=== PATIENT | female | born 1975 | race American Indian/Alaskan Native ===

== ENCOUNTER 2018-02-10 21:17 | Emergency (ER) | payer MEDICAID ==
[2018-02-10 22:32] VITALS: BP 141/78
[2018-02-10 23:11] LABS: Basophils # (Auto) 0.1 K/mm3 (0.0-0.1); Basophils % (Auto) 1.2 % (0.0-1.8); Eosinophils # (Auto) 0.2 K/mm3 (0.0-0.4); Hematocrit 42.6 % (30.3-42.9); Hemoglobin 13.7 gm/dl (10.1-14.3); Lymphocytes # (Auto) 3.4 K/mm3 (1.2-5.4); Lymphocytes % (Auto) 48.7 % (13.4-35.0); Mean Corpuscular HGB Conc 32 % (30-34); Mean Corpuscular Hemoglobin 30 pg (28-32); Mean Corpuscular Volume 92 fl (79-97); Monocytes # (Auto) 0.7 K/mm3 (0.0-0.8); Monocytes % (Auto) 10.6 % (0.0-7.3); Platelet Count 358 K/mm3 (140-440); Red Blood Count 4.61 M/mm3 (3.65-5.03); Red Cell Distribution Width 13.8 % (13.2-15.2)
[2018-02-10 23:30] LABS: Alanine Aminotransferase 18 units/L (7-56); Albumin 3.9 g/dL (3.9-5); BUN/Creatinine Ratio 12; Blood Urea Nitrogen 11 mg/dL (7-17); Hemolysis Index 7; Lipase 16 units/L (13-60)
== END 2018-02-11 00:30 | disposition left against medical advice (07) ==
LOC: ED 21:17
DX: R10.9 Unspecified abdominal pain (principal); R11.2 Nausea with vomiting, unspecified; F17.200 Nicotine dependence, unspecified, uncomplicated; Z53.21 Procedure and treatment not carried out due to patient leaving prior to being seen by health care provider
CPT/HCPCS: 36415; 80053; 83690; 85025

== ENCOUNTER 2018-04-03 06:09 | Observation (INO) | payer MEDICAID ==
[2018-04-01 14:01] LABS: Basophils # (Auto) 0.1 K/mm3 (0.0-0.1); Eosinophils # (Auto) 0.1 K/mm3 (0.0-0.4); Eosinophils % (Auto) 1.5 % (0.0-4.3); Hematocrit 43.3 % (30.3-42.9); Hemoglobin 14.4 gm/dl (10.1-14.3); Lymphocytes # (Auto) 2.9 K/mm3 (1.2-5.4); Lymphocytes % (Auto) 42.9 % (13.4-35.0); Mean Corpuscular HGB Conc 33 % (30-34); Mean Corpuscular Hemoglobin 31 pg (28-32); Mean Corpuscular Volume 93 fl (79-97); Monocytes # (Auto) 0.8 K/mm3 (0.0-0.8); Monocytes % (Auto) 12.2 % (0.0-7.3); Platelet Count 347 K/mm3 (140-440); Red Blood Count 4.66 M/mm3 (3.65-5.03); Red Cell Distribution Width 13.2 % (13.2-15.2)
--- NOTE | 2018-04-01 14:09 | Anesthesia Consultation ---
Anesthesia Consult and Med Hx Date of service: 04/01/18 - Airway Anesthetic Teeth Evaluation: Good ROM Head & Neck: Adequate Mental/Hyoid Distance: Adequate Mallampati Class: Class III Intubation Access Assessment: Possibly Difficult - Pulmonary Exam CTA: Yes - Cardiac Exam Cardiac Exam: RRR - Pre-Operative Health Status ASA Pre-Surgery Classification: ASA3 Proposed Anesthetic Plan: General
[2018-04-01 14:18] LABS: Alanine Aminotransferase 14 units/L (7-56); Albumin 3.9 g/dL (3.9-5); BUN/Creatinine Ratio 8; Blood Urea Nitrogen 8 mg/dL (7-17); Calcium 8.9 mg/dL (8.4-10.2); Hemolysis Index 10
[~2018-04-03 06:09] MED LIST: DILAUDID IV PRN; LACTATED RINGERS 1,000 ML IV SCH; VERSED IV NR; ZOFRAN IV PRN
[2018-04-03] MEDS ORDERED: PEPCID IV ONE (06:28)
[2018-04-03] MEDS ORDERED: NACL BACTERIOSTATIC INFILTRATI ONE (06:31)
[2018-04-03] MEDS ORDERED: MARCAINE 0.5% 0 ML INFILTRATI ONE (06:33)
[2018-04-03] MEDS ORDERED: MARCAINE-EPI 0.5%-1:200,000 INFILTRATI ONE ×2 (06:33→08:21)
[2018-04-03] MEDS ORDERED: ANCEF/STERILE WATER 2 GM/20 ML IV NR (07:00)
[2018-04-03] MEDS ORDERED: XYLOCAINE MPF 2% ONE (07:03)
[2018-04-03] MEDS ORDERED: DIPRIVAN 10 MG/ML IV ONE (07:03)
[2018-04-03] MEDS ORDERED: DILAUDID ONE (07:04)
[2018-04-03] MEDS ORDERED: DECADRON ONE (07:04)
[2018-04-03] MEDS ORDERED: ZOFRAN ONE (07:04)
[2018-04-03] MEDS ORDERED: ZEMURON IV ONE (07:04)
[2018-04-03] MEDS ORDERED: BENADRYL ONE (07:14)
[2018-04-03] MEDS ORDERED: BENADRYL IV SCH (07:21)
[2018-04-03] MEDS ORDERED: SUBLIMAZE ONE (07:42)
[2018-04-03] MEDS ORDERED: NEURONTIN PO NR (08:00)
[2018-04-03] MEDS ORDERED: TRANSDERM-SCOP TD NR (08:00)
[2018-04-03] MEDS ORDERED: ROBINUL ONE ×2 (08:17→09:10)
[2018-04-03] MEDS ORDERED: NACL 0.9% IR ONE (08:21)
[2018-04-03] MEDS ORDERED: NACL 0.9% IRRIGATION ONE (08:45)
--- NOTE | 2018-04-03 09:02 | Anesthesia Day of Surgery ---
Anesthesia Day of Surgery - Day of Surgery Patient Examined: Yes Patient H&P Reviewed: Yes Patient is NPO: Yes
[2018-04-03] MEDS ORDERED: BLOXIVERZ ONE (09:09)
[2018-04-03] MEDS ORDERED: TORADOL ONE (09:18)
[2018-04-03] MEDS ORDERED: MORPHINE IV PRN (10:00)
[2018-04-03] MEDS ORDERED: ZOFRAN IV PRN (10:00)
--- NOTE | 2018-04-03 10:04 | Operative Report ---
PREOPERATIVE DIAGNOSIS: Gallbladder disease. POSTOPERATIVE DIAGNOSIS: Cholecystitis with grossly distended and thickened gallbladder and fully impacted with stones. PROCEDURE: Laparoscopic cholecystectomy. SURGEON: Vinicio Palacios MD L[employer]ER IN [employer]ETING: Dr. Robin. ANESTHESIA: General. ESTIMATED BLOOD LOSS: Minimal. DRAINS: One 19-Migue drain left. COMPLICATIONS: No complications. DESCRIPTION OF PROCEDURE: The patient was taken up to the operating room, prepped and draped in usual sterile fashion. The patient is somewhat obese and also long needles and trocars were used. Veress needle was inserted and CO2 insufflation begun. A 5 mm trocar was then inserted and camera inserted. All other trocars inserted under direct visualization. Inspection of the gallbladder revealed to be grossly distended. The gallbladder was decompressed with laparoscopic needle and 20 mL syringe. Approximately 60 mL of bile were removed. At this point, the gallbladder was then completely noted to be impacted with stones. Gallbladder was grasped at the fundus and infundibulum and retracted towards the right subphrenic space. Procedure itself was technically difficult due to the patient's girth as well as inflammatory changes around the gallbladder. Dissection was carried out along Calot's triangle. The cystic duct and artery were delineated in their entire course. Both were then doubly clipped and transected. Some inflammatory tissue was noted around the cystic duct with the clips appeared to the completely securing the duct. A 19-Migue was left in the gallbladder fossa in case any leakage would occur. Gallbladder was then grasped at the fundus, infundibulum and again retracted. Hook electrocautery was used to slowly dissect the gallbladder from the overlying liver bed. Prior to complete removal, the liver bed was inspected for bleeding and noted to be dry. The cystic duct and artery stumps were once again visualized. The clips were noted to be securely in place with no evidence of bleeding or bile leak. Gallbladder was then completely freed and brought out through the subxiphoid port. The gallbladder was so enlarged and packed with stones and the incision had to be significantly extended in order to remove the gallbladder. A trocar was then reinserted and towel clips placed. The entire right upper quadrant of the abdomen was irrigated copiously and dried. Once again checked for hemostasis and noted to be dry. The 19-Migue was then placed as previously mentioned and brought out through a lateral port site. The drain was secured to the skin with a 2-0 silk suture. The fascia at the subxiphoid area was closed with 3 [id number] 0 Vicryls on a UR needle. The air was then palpated and noted to be well closed with no evidence of defects or even air leaks. The other 5 mm port was then removed under direct visualization, no bleeding or oozing noted. The final 5 mm port was used to expel the CO2 and the trocar removed. The skin in all port sites was closed with subcuticular 4-0 Vicryl. A 0.5% Marcaine was infiltrated over the port site for postoperative pain relief. The patient tolerated the procedure well and left OR in stable condition. [facility]# [id number] KORI/CHARO
[2018-04-03] MEDS ORDERED: COMPAZINE IV NR (10:30)
[2018-04-03] MEDS: LEVAQUIN 500MG/100ML 500 MG/100 ML BAG IV SCH (11:00)
--- NOTE | 2018-04-03 11:30 | Post Anesthesia Evaluation ---
- Post Anesthesia Evaluation Patient Participated: Yes Airway Patent: Yes Stable Respiratory Function: Yes Nausea/Vomiting: Yes (resolved with IV antiemetics) Temp > 96.8F: Yes Pain Manageable: Yes Adequeate Hydration: Yes Anesthesia Complications: No Block Receding Appropriately: Not Applicable Patient on Ventilator: No Other Comments: Patient had severe nausea prior to procedure and received multiple antiemetics perioperatively. Symptoms significantly improved in PACU.
[2018-04-03] MEDS: D5W/0.45% NACL/KCL 30 MEQ 30 MEQ/1,000 ML BAG IV SCH (18:05)
[2018-04-04] MEDS: DILAUDID IV PRN ×2 (00:17→10:28)
[2018-04-04] MEDS: D5W/0.45% NACL/KCL 30 MEQ 30 MEQ/1,000 ML BAG IV SCH ×2 (02:05→13:25)
[2018-04-04 05:30] LABS: Hematocrit 41.9 % (30.3-42.9); Hemoglobin 14.7 gm/dl (10.1-14.3); Mean Corpuscular HGB Conc 35 % (30-34); Mean Corpuscular Hemoglobin 32 pg (28-32); Mean Corpuscular Volume 91 fl (79-97); Red Blood Count 4.61 M/mm3 (3.65-5.03); Red Cell Distribution Width 13.1 % (13.2-15.2)
[2018-04-04 05:37] LABS: Alanine Aminotransferase 21 units/L (7-56); Albumin 3.5 g/dL (3.9-5); BUN/Creatinine Ratio 9; Blood Urea Nitrogen 8 mg/dL (7-17); Calcium 8.6 mg/dL (8.4-10.2); Hemolysis Index 46
[2018-04-04 05:47] LABS: Basophils % (Auto) 2.8 % (0.0-1.8); Eosinophils % (Auto) 0.4 % (0.0-4.3); Lymphocytes # (Auto) 1.3 K/mm3 (1.2-5.4); Lymphocytes % (Auto) 18.3 % (13.4-35.0); Monocytes % (Auto) 6.2 % (0.0-7.3)
[2018-04-04 05:48] LABS: Basophils # (Auto) 0.2 K/mm3 (0.0-0.1); Monocytes # (Auto) 0.4 K/mm3 (0.0-0.8)
[2018-04-04 07:32] LABS: Platelet Count 273 K/mm3 (140-440)
[2018-04-04] MEDS: LEVAQUIN 500MG/100ML 500 MG/100 ML BAG IV SCH (10:28)
--- NOTE | 2018-04-04 12:32 | Progress Note ---
Assessment and Plan POD #1 Pt feeling well. had some incisional pain last night but "much better now". hungry Abd soft, non tender. +BS dressing dry. SACHA minimal serosanguinous drainage (less that 25 cc) am labs wnl stable cl liq diet d/c today if diet abby and pain controlled on po analgesics. advance to solid low fat diet at home in am rto this Fri Selected Entries 04/04/18 08:09 Temperature 98.1 F Pulse Rate 58 L Respiratory 18 Rate Blood Pressure 125/63 [Left] Laboratory Tests 04/04/18 04/04/18 04:25 04:25 WBC 7.2 Hgb 14.7 H Hct 41.9 Sodium 133 L Potassium 4.1 Chloride 101.7 BUN 8 Creatinine 0.9 Glucose 105 H Total Bilirubin 0.60 AST 33 ALT 21 Alkaline Phosphatase 69 Objective Vital Signs - 12hr 04/04/18 04/04/18 04:36 08:09 Temperature 98.5 F 98.1 F Pulse Rate 53 L 58 L Respiratory 20 18 Rate Blood Pressure 131/59 Blood Pressure 125/63 [Left] O2 Sat by Pulse 97 100 Oximetry - Labs 04/04/18 04:25 04/04/18 04:25 Diabetes panel 04/04/18 Range/Units 04:25 Sodium 133 L (137-145) mmol/L Potassium 4.1 (3.6-5.0) mmol/L Chloride 101.7 (98-107) mmol/L Carbon Dioxide 19 L (22-30) mmol/L BUN 8 (7-17) mg/dL Creatinine 0.9 (0.7-1.2) mg/dL Glucose 105 H (65-100) mg/dL Calcium 8.6 (8.4-10.2) mg/dL AST 33 (5-40) units/L ALT 21 (7-56) units/L Alkaline Phosphatase 69 (35-129) units/L Total Protein 6.7 (6.3-8.2) g/dL Albumin 3.5 L (3.9-5) g/dL Calcium panel 04/04/18 Range/Units 04:25 Calcium 8.6 (8.4-10.2) mg/dL Albumin 3.5 L (3.9-5) g/dL Pituitary panel 04/04/18 Range/Units 04:25 Sodium 133 L (137-145) mmol/L Potassium 4.1 (3.6-5.0) mmol/L Chloride 101.7 (98-107) mmol/L Carbon Dioxide 19 L (22-30) mmol/L BUN 8 (7-17) mg/dL Creatinine 0.9 (0.7-1.2) mg/dL Glucose 105 H (65-100) mg/dL Calcium 8.6 (8.4-10.2) mg/dL Adrenal panel 04/04/18 Range/Units 04:25 Sodium 133 L (137-145) mmol/L Potassium 4.1 (3.6-5.0) mmol/L Chloride 101.7 (98-107) mmol/L Carbon Dioxide 19 L (22-30) mmol/L BUN 8 (7-17) mg/dL Creatinine 0.9 (0.7-1.2) mg/dL Glucose 105 H (65-100) mg/dL Calcium 8.6 (8.4-10.2) mg/dL Total Bilirubin 0.60 (0.1-1.2) mg/dL AST 33 (5-40) units/L ALT 21 (7-56) units/L Alkaline Phosphatase 69 (35-129) units/L Total Protein 6.7 (6.3-8.2) g/dL Albumin 3.5 L (3.9-5) g/dL
--- NOTE | 2018-04-04 13:17 | Discharge Summary ---
DISCHARGE DIAGNOSES: 1. Acute cholecystitis with multiple gallstones and no surrounding inflammatory reaction. 2. Hypertension. PROCEDURE: While in hospital, laparoscopic cholecystectomy. HOSPITAL COURSE: The patient is a pleasant 42-year-old female who presented to the office with a history of epigastric and right upper quadrant abdominal pain, accompanied by nausea and dyspepsia. X-ray findings revealed multiple gallstones. At this time, the patient was admitted for laparoscopic cholecystectomy, which she underwent without incident. Gallbladder was quite distended and impacted with stones. There was also surrounding inflammation around Calot's triangle and the gallbladder itself. Because of these reasons, a SACHA drain was left postoperatively and the patient was kept inhouse for 23-hour observation. Currently, the patient is postop day #1, afebrile and feeling well. Her vital signs are stable and she has been afebrile. SACHA drainage has some minimal serosanguineous drainage less than 25 mL. Her abdomen is soft and nontender. Dressings are clean and dry. Bowel sounds are present and the patient is hungry. Postop lab works include a CBC which shows a white count of 7.2, H and H is 14 and 41. Electrolytes were essentially within normal limits. LFTs are also within normal limits including a total bilirubin of 0.6, AST is 33, ALT is 21, alkaline phosphatase is 69. The patient will thus be started on clear liquid diet this morning and will tentatively be discharged today if her diet is well tolerated. The patient has been instructed to call me immediately if she has any evidence of nausea, vomiting, abdominal pain, or fever. If not, the patient will advance herself to a solid, low-fat diet at home in the morning and follow up in the office in approximately 1 week. JOB# [id number] KORI/CHARO
[2018-04-04] MEDS: PERCOCET 5/325 PO PRN ×2 (18:21→22:54)
[2018-04-05] MEDS: PERCOCET 5/325 PO PRN ×3 (02:37→10:54)
[2018-04-05 08:00] VITALS: BP 139/74
== END 2018-04-05 11:00 | disposition home or self-care (01) ==
LOC: OR 06:09 → OB 09:35 → 3B-SURG 10:52
PROVIDERS: ADMIT Surgery; ATTEND Surgery
DX: K80.00 Calculus of gallbladder with acute cholecystitis without obstruction (principal); I10 Essential (primary) hypertension
CPT/HCPCS: 36415; 47562; 80053; 82150; 84703; 85025; 88304; 96365; 96366; 96375; 96376; A4217; G0378; J0690; J0780; J1100; J1170; J1200; J1885; J1956; J2250; J2270; J2405; J2704; J2710; J3010; J7120

== ENCOUNTER 2018-04-14 15:12 | Emergency (ER) | payer MEDICAID ==
[2018-04-14 15:50] LABS: Basophils # (Auto) 0.2 K/mm3 (0.0-0.1); Basophils % (Auto) 2.8 % (0.0-1.8); Eosinophils # (Auto) 0.3 K/mm3 (0.0-0.4); Eosinophils % (Auto) 3.8 % (0.0-4.3); Hematocrit 43.6 % (30.3-42.9); Hemoglobin 14.9 gm/dl (10.1-14.3); Lymphocytes # (Auto) 2.8 K/mm3 (1.2-5.4); Lymphocytes % (Auto) 41.5 % (13.4-35.0); Mean Corpuscular HGB Conc 34 % (30-34); Mean Corpuscular Hemoglobin 31 pg (28-32); Mean Corpuscular Volume 92 fl (79-97); Monocytes # (Auto) 0.8 K/mm3 (0.0-0.8); Monocytes % (Auto) 11.1 % (0.0-7.3); Platelet Count 475 K/mm3 (140-440); Red Blood Count 4.76 M/mm3 (3.65-5.03)
[2018-04-14 16:23] LABS: Alanine Aminotransferase 28 units/L (7-56); BUN/Creatinine Ratio 9; Blood Urea Nitrogen 8 mg/dL (7-17); Calcium 9.3 mg/dL (8.4-10.2); Hemolysis Index 4; Lipase 19 units/L (13-60)
[2018-04-14 16:33] LABS: Bilirubin,Urine NEG (Negative); Blood,Urine NEG (Negative); Color,Urine Yellow (Yellow); Mucus,Urine FEW /HPF; Protein,Urine <15 mg/dL mg/dL (Negative)
[2018-04-14] MEDS ORDERED: ZOFRAN ODT ONE (16:36)
[2018-04-14] MEDS ORDERED: ZOFRAN ODT PO ONE (16:45)
[2018-04-14] MEDS ORDERED: NORCO 7.5/325 PO ONE (18:18)
--- NOTE | 2018-04-14 18:38 | Emergency Department Report ---
HPI - General Chief Complaint: Abdominal Pain Time Seen by Provider: 04/14/18 17:47 - HPI HPI: The patient's 42-year-old female who presents for evaluation of wound dehiscence , approximately 2 weeks status post cholecystectomy. The patient reports opening of her surgical incision site below the umbilicus earlier today. She also complains of continued mild sharp and pressure-like Misty the abdominal pain since her surgery over 2 days ago, exacerbated with movement or bending over. The patient denies fever, chills, night sweats, diarrhea, blood in the stool, dark tarry stool, dysuria, hematuria, flank pain, genital discharge, inability to pass flatus. ED Past Medical Hx - Past Medical History Previous Medical History?: Yes Hx Hypertension: Yes Additional medical history: gallstones - Surgical History Past Surgical History?: Yes Hx Cholecystectomy: Yes - Social History Smoking Status: Never Smoker Substance Use Type: None - Medications Home Medications: Home Medications Medication Instructions Recorded Confirmed Last Taken Type Lisinopril [Zestril] 10 mg PO DAILY 04/02/18 04/03/18 04/03/18 05:00 History HYDROcodone/APAP 5-325 [[place] 1 - 2 each PO Q4HR PRN #24 tablet 04/04/18 Unknown Rx 5/325] HYDROcodone/APAP 5-325 [[place] 1 each PO Q6HR PRN #10 tablet 04/14/18 Unknown Rx 5/325] ED Review of Systems ROS: Stated complaint: SUTURES NOT INTACT Other details as noted in HPI Constitutional: denies: fever ENT: denies: throat or neck pain Respiratory: denies: cough, shortness of breath Cardiovascular: denies: chest pain Endocrine: denies unexplained weight loss or gain Gastrointestinal: reports: abdominal pain, nausea Genitourinary: denies: dysuria Musculoskeletal: denies: leg swelling Skin: denies: rash Neurological: denies: headache Hematological/Lymphatic: denies: easy bleeding or easy bruising Psych: denies sadness or hopelessness Physical Exam - Physical Exam Vital Signs: Vital Signs 04/14/18 15:20 Temperature 98.0 F Pulse Rate 83 Respiratory 18 Rate Blood Pressure 145/83 O2 Sat by Pulse 99 Oximetry Physical Exam: General: well-nourished, well-developed, no acute distress Head: Normocephalic, atraumatic Eyes: normal sclera ENT: Mucous membranes are pink and moist Neck: trachea midline, neck supple, No neck stiffness, no cervical adenopathy Respiratory: Breath sounds equal bilaterally, no wheezing, rales, or rhonchi Cardio: S1 and S2 present, no murmurs, rubs, gallops, capillary refill is brisk Abdomen: Normoactive bowel sounds, soft abdomen, periumbilical pain, 1mm surgical site wound dehiscene inferior to umbilicus, no rigidity, no guarding or rebound tenderness Musc: No pitting edema Skin: No rash Neuro: no facial drooping, normal speech Psych: Normal affect ED Course Vital Signs 04/14/18 15:20 Temperature 98.0 F Pulse Rate 83 Respiratory 18 Rate Blood Pressure 145/83 O2 Sat by Pulse 99 Oximetry ED Medical Decision Making - Lab Data Result diagrams: 04/14/18 15:35 04/14/18 15:35 - Medical Decision Making The patient was seen and examined by myself. The patient is placed on a potline monitor and continuous pulse ox. On initial evaluation, the patient was found to be in no distress. Evaluation orders are placed. IV access is established and the patient is given 1 L normal saline fluid bolus and Zofran for nausea, and IV analgesic for pain. Lab results were non-concerning including WBC, hemoglobin, hematocrit, electrolytes, renal function, LFTs, lipase, and urinalysis. The patient is offered placement of suture to close the wound dehiscence and she declines. Steri-Strip is placed to the patient's dehisced wound. The patient was reevaluated and reported that their symptoms were markedly improved. The patient is stable for discharge with outpatient follow-up. The patient is given follow-up and return instructions. The patient expressed understanding and agreed with the plan. The patient is discharged in stable condition. Critical care attestation.: If time is entered above; I have spent that time in minutes in the direct care of this critically ill patient, excluding procedure time. ED Disposition Clinical Impression: Wound dehiscence, Acute generalized abdominal pain Disposition: TO HOME OR SELFCARE Is pt being admited?: No Does the pt Need Aspirin: No Condition: Stable Instructions: Abdominal Pain (ED), Acute Wound Care (ED) Referrals: PRIMARY CARE, [Primary Care Provider] - 3-5 Days Time of Disposition: 18:20
[2018-04-14 19:22] VITALS: BP 146/84
== END 2018-04-14 19:36 | disposition home or self-care (01) ==
LOC: ED 15:12
DX: T81.31XA Disruption of external operation (surgical) wound, not elsewhere classified, initial encounter (principal); R10.33 Periumbilical pain; I10 Essential (primary) hypertension; Z90.49 Acquired absence of other specified parts of digestive tract; Z79.899 Other long term (current) drug therapy
CPT/HCPCS: 36415; 80053; 81001; 83690; 84703; 85025; 99284; Q0162